=== PATIENT | female | born 1955 | race Caucasian/White ===

== ENCOUNTER → 2016-08-27 | Outpatient (CLI) | payer OTHER ==
[~2016-08-27] VITALS: Ht 157.5 cm; Wt 63.5 kg
[~2016-08-27] MED LIST: ATORVASTATIN CA20 MG PO; CLARITIN10 M3 PO; FENOFIBRATE160 M1 PO; JANUVIA25 M1 PO; LOSARTAN POTASS50 MG PO; MELOXICAM15 MG PO; METFORMIN HCL1000 MG PO; PROAIR HFA8.5 GM IH; PROTONIX40 MG PO; ZOLOFT100 MG PO
[2016-08-27 08:51] LABS: POINT-OF-CARE METER ID UU13113694
[2016-08-27 10:26] LABS: POINT-OF-CARE METER ID UU13113819
== END | disposition home or self-care (01) ==
LOC: AMB 08:08
PROVIDERS: Internal Medicine
PROC: 0DJD8ZZ Inspection of Lower Intestinal Tract, Via Natural or Artificial Opening Endoscopic (ICD-10-PCS; principal; 2016-08-27)
DX: Z12.11 Encounter for screening for malignant neoplasm of colon (principal); Z53.8 Procedure and treatment not carried out for other reasons; E11.9 Type 2 diabetes mellitus without complications; E78.1 Pure hyperglyceridemia; K44.9 Diaphragmatic hernia without obstruction or gangrene; I10 Essential (primary) hypertension; E66.9 Obesity, unspecified; Z68.27 Body mass index [BMI] 27.0-27.9, adult; Z88.8 Allergy status to other drugs, medicaments and biological substances
CPT/HCPCS: 82948; 93005

== ENCOUNTER → 2018-01-15 | Outpatient (CLI) | payer MEDICARE, OTHER | END | disposition home or self-care (01) | LOC: CDC 09:32 | DX: Z01.810 Encounter for preprocedural cardiovascular examination (principal); M21.619 Bunion of unspecified foot; E11.9 Type 2 diabetes mellitus without complications | CPT/HCPCS: 93000 ==